=== PATIENT | female | born 1995 | race Two or more races ===

== ENCOUNTER 2024-03-14 19:02 | Emergency (ER) | payer MEDICAID, OTHER ==
[~2024-03-14] VITALS: Ht 154.9 cm; Wt 61.0 kg
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
[2024-03-14 20:00] VITALS: PULSE 95; RESP 13; O2SAT 100
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
[2024-03-14 21:26] LABS: Urine Bacteria FEW /hpf (None Seen); Urine Blood Negative /uL (Negative); Urine Clarity Clear (Clear); Urine Color Colorless (Yellow); Urine Protein, UAD Negative (Negative); Urine Specific Gravity 1.003 (1.001-1.035); Urine Urobilinogen Normal (Negative); Urine WBC 1 /hpf (0 - 5); Urine pH 6.5 (5.0-9.0)
[2024-03-14 23:00] VITALS: BP 103/58; PULSE 94; RESP 16; TEMP 98.2; O2SAT 98
== END 2024-03-14 23:38 | disposition home or self-care (01) ==
LOC: ER 19:02 → EDBD 19:02 → ER 23:38
DX: O32.1XX0 Maternal care for breech presentation, not applicable or unspecified (principal); O36.8320 Maternal care for abnormalities of the fetal heart rate or rhythm, second trimester, not applicable or unspecified; Z3A.18 18 weeks gestation of pregnancy; Y04.2XXA Assault by strike against or bumped into by another person, initial encounter; Y93.89 Activity, other specified; Y92.89 Other specified places as the place of occurrence of the external cause; Y99.8 Other external cause status
CPT/HCPCS: 76805; 81001